=== PATIENT | female | born 1945 | race Caucasian/White ===

== ENCOUNTER 2018-02-23 17:06 | Emergency (ER) | payer MEDICARE, OTHER ==
[2018-02-23 17:36] VITALS: BP 108/71
--- NOTE | 2018-02-23 17:39 | ED Physician Documentation ---
General Adult - HISTORIAN Historian: patient - HPI Stated Complaint: fall Chief Complaint: General Adult Additional Information: Tripped and fell yesterday and landed with fist to sternum. Now has pain distal sternum with deep breath. Has taken 400 mg ibuprofen earlier today and tylenol once today. Both helped for awhile. Concerned she may have broken something. No other modifying factors or associated signs. - ROS CONST: no problems - PAST HX Past History: other (depression, hypothyroid) Surgeries/Procedures: hysterectomy Allergies/Adverse Reactions: Allergies Allergy/AdvReac Type Severity Reaction Status Date / Time No Known Allergies Allergy Unverified 02/23/18 17:36 Home Medications: Ambulatory Orders Medication Instructions Recorded Unobtainable [Unobtainable] 02/23/18 - SOCIAL HX Smoking History: non-smoker Alcohol Use: none Drug Use: none - FAMILY HX Family History: Yes (M with heart disease in 90's) - VITAL SIGNS Vital Signs: Vital Signs Temp Pulse Resp BP Pulse Ox 98.7 F 80 16 108/71 99 02/23/18 17:17 02/23/18 17:17 02/23/18 17:17 02/23/18 17:17 02/23/18 17:17 - REVIEWED ASSESSMENTS Nursing Assessment Reviewed: Yes Vitals Reviewed: Yes Progress - Progress Progress: Report Submission Date: Feb 23, 2018 5:58:44 PM CDT Patient Study Name: AFRICA COLON Date: Feb 23, 2018 5:37:42 PM CDT Modality Type: DX Gender: F Description: CHEST : 49 Institution: [facility] Physician: LA MORGAN - ER HISTORY: Sternal pain after fall yesterday. COMPARISON: None available TECHNIQUE: AP and oblique views of the sternum were performed. IMPRESSION: 1. No evidence of displaced sternal fracture. 2. Multiple thoracic compression fractures, presumably chronic. These would be better characterized with formal thoracic spine radiographs if clinically desired. Electronically signed on Feb 23, 2018 5:58:44 PM CDT by: Griffin Correa ED Results Lab/Radiology - Orders Orders: ED Orders Category Date Time Status STERNUM 2 VIEWS OR MORE [RAD] Stat Exams 02/23/18 Ordered General Adult Physical Exam - PHYSICAL EXAM GENERAL APPEARANCE: mild distress EENT: eye inspection normal, ENT inspection normal, pharynx normal NECK: normal inspection, supple RESPIRATORY: no resp distress, breath sounds normal, other (distal sternum tender to palpation) CVS: reg rate & rhythm, heart sounds normal, no murmur BACK: normal inspection SKIN: warm/dry, normal color EXTREMITIES: normal range of motion (gait and stance) NEURO: CN's nml as tested, motor nml, sensation nml, cognition normal Discharge Clincal Impression: Sternal contusion Qualifiers: Encounter type: initial encounter Qualified Code(s): S20.20XA - Contusion of thorax, unspecified, initial encounter Fracture, thoracic vertebra, compression Qualifiers: Encounter type: initial encounter Fracture type: closed Qualified Code(s): S22.000A - Wedge compression fracture of unspecified thoracic vertebra, initial encounter for closed fracture Referrals: Primary Doctor,No [Primary Care Provider] - 2 Days Condition: Good Disposition: 01 HOME, SELF-CARE Decision to Admit: NO Decision Time: 18:00
--- NOTE | 2018-02-23 22:12 | Diagnostic Imaging Report ---
LA MORGAN [facility] [address] [facility] [address] [address] Report Submission Date: Feb 23, 2018 5:58:44 PM CDT Patient Study Name: AFRICA COLON Date: Feb 23, 2018 5:37:42 PM CDT Modality Type: DX Gender: F Description: CHEST : 49 Institution: [facility] Physician: LA MORGAN HISTORY: Sternal pain after fall yesterday. COMPARISON: None available TECHNIQUE: AP and oblique views of the sternum were performed. IMPRESSION: 1. No evidence of displaced sternal fracture. 2. Multiple thoracic compression fractures, presumably chronic. These would be better characterized with formal thoracic spine radiographs if clinically desired. Electronically signed on Feb 23, 2018 5:58:44 PM CDT by: Griffin PIEDRA
== END 2018-02-23 18:10 | disposition home or self-care (01) ==
LOC: ED 17:06
DX: S20.20XA Contusion of thorax, unspecified, initial encounter (principal); S22.000A Wedge compression fracture of unspecified thoracic vertebra, initial encounter for closed fracture; W19.XXXA Unspecified fall, initial encounter; Y92.9 Unspecified place or not applicable; Y93.9 Activity, unspecified; Y99.9 Unspecified external cause status
CPT/HCPCS: 71120